=== PATIENT | female | born 1935 | race Caucasian/White ===

== ENCOUNTER 2020-07-30 16:06 | Inpatient (IN) | payer MEDICARE, OTHER ==
[2020-07-30 18:30] LABS: #Lymphocytes 0.7 thou/uL (1.20-3.40); #Neutrophils 10.7 thou/uL (1.40-6.50); %Eosinophils 0.2 % (0.0-10.0); %Lymphocytes 5.3 % (21.0-51.0); %Monocytes 8.1 % (0.0-10.0); %Neutrophils 86.4 % (42.0-75.0); Hemoglobin 10.9 g/dL (12.0-16.0); Mean Corpuscular HGB CONC 31.4 g/dL (32.0-36.0); Mean Corpuscular Hemoglobin 29.3 pg (27.0-31.0); Mean Corpuscular Volume 93.5 fL (78.0-98.0); Mean Platelet Volume 9.8 fL (7.4-10.4); Platelet Count 228 thou/uL (130-400); RBC Distribution Width 15.2 % (11.5-14.5); Red Blood Cell (RBC) Count 3.71 mill/uL (4.20-5.40); White Blood Cell (WBC) Count 12.4 thou/uL (4.8-10.8)
[2020-07-30 18:51] LABS: ALT (SGPT) 12 U/L (8-55); AST (SGOT) 17 U/L (5-34); Albumin 3.4 g/dL (3.4-4.8); Alkaline Phosphatase 81 U/L (40-110); Anion Gap 18 mmol/L (10-20); BUN (Urea Nitrogen) 48 mg/dL (9.8-20.1); Bilirubin, Total 0.6 mg/dL (0.2-1.2); Calc. Creatinine Clearance 0 mL/min (70-130); Calcium 8.5 mg/dL (7.8-10.44); Carbon Dioxide 15 mmol/L (23-31); Chloride 115 mmol/L (98-107); Globulin 4.1 g/dL (2.4-3.5); Glucose 123 mg/dL (83-110); Potassium 4.2 mmol/L (3.5-5.1); Protein, Total 7.5 g/dL (6.0-8.3); Sodium 144 mmol/L (136-145)
[2020-07-30] MEDS ORDERED: Acetaminophen 500 MG TAB ONE (19:25)
--- NOTE | 2020-07-30 19:41 | RAD ---
FRONTAL RADIOGRAPH CHEST: Date: 07-30-2020 Comparison: None History: Bilateral lower extremity swelling, unable to ambulate. FINDINGS: No pneumothorax or pleural fluid. No focal consolidation or alveolar edema. The descending thoracic a maria luisa is tortuous. There is rounded density at the diaphragmatic hiatus suggesting hiatal hernia. Mild pulmonary vascular congestion. IMPRESSION: Rounded density at the diaphragmatic hiatus suggests hiatal hernia. No focal consolidation or alveola r edema. POS: RUMA
[2020-07-30] MEDS ORDERED: Furosemide 40 MG/4 ML VIAL ONE (20:08)
[2020-07-30 22:28] LABS: Troponin I 0.034 ng/mL (< 0.028)
--- NOTE | 2020-07-30 22:46 | PDOC.FPRHP ---
- History of Present Illness Chief Complaint: B/L LE Edema History of Present Illness: Patient brought in by her daughter for evaluation of 2 months worth of gradual worsening lower extremity swelling and now the patient is unable to ambulate. Per daughter patient is normally able to ambulate without assistance, but today her legs are extremely swollen and she states that it is too painful to walk. No chest pain, no shortness of breath, no cough, no recent fever or illness. She did not fall because any trauma to her lower extremities. Her symptoms are continuous in nature and not affected by movements or position. Patient is a poor historian, kept falling asleep during questioning. Unable to determine baseline at our examination due to no family member there and unable to reach [facility]. ED Course: Furosemide $0mg IVP, 1000mg acetaminophen - Allergies/Adverse Reactions Allergies Allergy/AdvReac Type Severity Reaction Status Date / Time Penicillins Allergy Verified 07/31/20 08:20 - Home Medications Medication Instructions Recorded Confirmed Type Amlodipine Besylate [amLODIPine 10 mg PO DAILY 07/31/20 07/31/20 History Besylate] Clopidogrel Bisulfate [Clopidogrel] 75 mg PO DAILY 07/31/20 07/31/20 History Levothyroxine Sodium 112 mcg PO 0600 07/31/20 07/31/20 History [Levothyroxine] Rosuvastatin [Crestor] 20 mg PO DAILY 07/31/20 07/31/20 History - History PMHx: Hypothyroidism, HLD, HTN, CKD Stage 5, PVD - limited due to poor historian PSHx: cholecystectomy, tonsillectomy FHx: as above Social: as above - Review of Systems ROS unobtainable: other (patient AxO x3, however constantly falling asleep during questioning) General: denies: fever/chills, weight/appetite/sleep changes Eyes: denies: eye pain, vision changes ENT: denies: nasal congestion, rhinorrhea Respiratory: denies: cough, congestion Cardiovascular: reports: edema. denies: chest pain, palpitation Gastrointestinal: denies: nausea, vomiting, diarrhea, constipation, abdominal pain Genitourinary: denies: incontinence, dysuria Skin: denies: rashes, lesions Musculoskeletal: reports: pain, tenderness. denies: stiffness Neurological: denies: numbness, syncope - Vital signs BP: 139/64, Pulse: 70, Resp: 18, Pain: 0, O2 sat: 96 on (Room Air), Wt 61.23kg - Physical Exam Constitutional: NAD, awake, alert and oriented HEENT: normocephalic and atraumatic, MMM Neck: supple, FROM Heart: RRR, normal S1/S2, no murmurs/rubs/gallops, other (2+ pitting edema bilaterally) Lungs: CTAB, no respiratory distress Abdomen: soft, non-tender Musculoskeletal: normal structure Neurological: no focal deficit, CN II-XII intact -Skin: 2cm x 1 cm pressure ulcer on the right ankle with surrounding erythema Heme/Lymphatic: no unusual bruising or bleeding, no purpura, no petechia -Psychiatric: AxO x 3, however falling asleep frequently and difficulty answering questions FMR H&P: Results - Labs Result Diagrams: 07/31/20 04:30 07/31/20 04:30 Lab results: WBC 12.4 thou/uL (4.8-10.8) H 07/30/20 18:13 Hgb 10.9 g/dL (12.0-16.0) L 07/30/20 18:13 Hct 34.7 % (36.0-47.0) L 07/30/20 18:13 MCV 93.5 fL (78.0-98.0) 07/30/20 18:13 Plt Count 228 thou/uL (130-400) 07/30/20 18:13 Neutrophils % 86.4 % (42.0-75.0) H 07/30/20 18:13 Sodium 144 mmol/L (136-145) 07/30/20 18:13 Potassium 4.2 mmol/L (3.5-5.1) 07/30/20 18:13 Chloride 115 mmol/L (98-107) H 07/30/20 18:13 Carbon Dioxide 15 mmol/L (23-31) L 07/30/20 18:13 BUN 48 mg/dL (9.8-20.1) H 07/30/20 18:13 Creatinine 2.96 mg/dL (0.6-1.1) H 07/30/20 18:13 Glucose 123 mg/dL (83-110) H 07/30/20 18:13 Calcium 8.5 mg/dL (7.8-10.44) 07/30/20 18:13 Total Bilirubin 0.6 mg/dL (0.2-1.2) 07/30/20 18:13 AST 17 U/L (5-34) 07/30/20 18:13 ALT 12 U/L (8-55) 07/30/20 18:13 Alkaline Phosphatase 81 U/L (40-110) 07/30/20 18:13 CK-MB (CK-2) 2.0 ng/mL (0-6.6) 07/30/20 18:13 B-Natriuretic Peptide 106.1 pg/mL (0-100) H 07/30/20 18:13 Serum Total Protein 7.5 g/dL (6.0-8.3) 07/30/20 18:13 Albumin 3.4 g/dL (3.4-4.8) 07/30/20 18:13 FMR H&P: A/P - Plan Sepsis 2/2 Cellulitis vs UTI WBC 12.4, tachy at 96 on admission UA: +nitrites, bacteria - give dose Rocephin - BCx ordered, UCx ordered - Procal ordered - mIVFs Acute Encephalopathy, suspected 2/2 cellulitis vs UTI Unable to determine baseline 2/2 unable to reach daughter - Procal, BCx as above - ammonia ordered - stat ABG - TSH - UA ordered - Continue to attempt to reach daughter - NPO, pending bedside swallow Elevated Troponin, r/o ACS, suspected 2/2 demand ischemia 0.39 --> 0.34, likely 2/2 CKD EKG with NSR & RBBB, LAFB, no ST/T wave changes. - will get Echo - trend Troponins PVD s/p bilateral angioplasty - aware Bilateral LE Edema - suspected 2/2 PVD, chronic edema CKD Stage [address] Avendano Cr. 2.86 appears baseline from last visit - renally dose medications - continue to monitor Hypothyroidism - resume home meds - check TSH HTN - resume home meds HLD - resume home meds Anemia - No clinical signs of bleeding, at baseline. Likely anemia of CKD. Monitor. DVT ppx: ppx heparin Fluids: LR @130cc/hr Abx: Rocephin I have discussed this case with Dr. Alexander who is in agreement with the plan. FMR H&P: Upper Level - Plan Date/Time: 07/30/20 0379 I, [Evelyn Avendano], have evaluated this patient and agree with findings/plan as outlined by logistics intern resident. Pertinent changes/additions are listed here. Ms. Pham is an 85 yo F with CKD4, hypothyroidism brought in by daughter for painful bilateral lower extremity swelling per ERMD and being admitted for elevated troponin, ACS r/o. Patient is sleepy in room but does deny chest pain. She has had BLE edema that has been present for quite some time per daughter and per chart review she has a history of PVD with hx of bilateral angioplasty. Pt reports the swelling is bothersome this evening. Denies fevers, chills but again she is in and out of consciousness so it is difficult to obtain. She has CKD4, follows along with Dr. Regan Avendano. June labs showed Cr 2.96 and gfr 15 (around what it is in the ER this evening). She needs to be verbally prompted to respond but is A&O x3. On exam she has 2+ edema up to mid elder. Her right foot is worse than her left with developing erythema around a pressure ulcer starting to form. She was given 40IV Lasix in the ER. Pertinent labs: elevated WBC of ~12, BNP 106. No known cardiac history. BUN 48, Cr 2.96, BNP 106 #Acute encephalopathy: Unsure of baseline, attempted to contact daughter. Could be 2/2 to sepsis. Check ABG, TSH, ammonia. Speech swallow, NPO in meantime. #Sepsis 2/2 RLE cellulitis vs. UTI: Elevated WBC, tachycardic in ER -UA: Nitrites, bacteria -Will get blood cultures, give dose of rocephin, pending UCx & BCx -Since mildly fluid overloaded with CKD4, will start on maintenance+ fluids for 1L total -Repeat labs in AM #Elevated troponin, ACS r/o: 0.039, EKG with NSR & RBBB, LAFB, no ST/T wave changes. Will trend, admit to tele & monitor. Consider stress response from acute infection with poor clearance in light of ESRD. Patient unable to give cardiac history, will need to call daughter in AM again to get more information. HEART 5 #Non gap met acidosis: Check lactic acid #Elevated BUN: Fluids, recheck in AM #Anemia: No clinical signs of bleeding, at baseline. Likely anemia of CKD. Monitor. #Hx of hypothyroidism: Will check TSH DVT ppx: ppx heparin Fluids: LR @130cc/hr Abx: Rocephin See logistics intern note for rest of chronic problems Addendum - Attending - Attending Attestation Date/Time: 07/31/202044 I personally evaluated the patient and discussed the management with Dr. Mendez and Juan Alberto last night in the ER. I agree with the History, Examination, Assessment and Plan documented above with any addition or exceptions noted below.
[2020-07-31 00:19] LABS: CO2 Tension 29.7 mmHg (35.0-45.0); O2 Tension (PaO2), arterial 69.1 mmHg (> 60.0); pH, Arterial 7.37 (7.35-7.45)
[2020-07-31 00:20] LABS: Actual Bicarbonate (HCO3a) 16.8 mEq/L (22-28); Base Excess (BEa) -7.4 mEq/L (-2.0 to +3.0); Hemoglobin (Hb) 10.5 g/dL (12.0-16.0)
[2020-07-31 00:21] LABS: Analyzer IN Cardio ER; Carboxyhemoglobin (COHb) 0.1 gm% (0.0-3.0); Potassium - ABG Lab 3.94 mmol/L (3.70-5.30); Puncture Site RRA
[2020-07-31 00:22] LABS: ALV-art Gradient 43.505 mmHg (0-20)
[2020-07-31 01:15] LABS: Troponin I 0.042 ng/mL (< 0.028)
[2020-07-31] MEDS ORDERED: Lactated Ringer's 1,000 ML IV SCH (01:45)
[2020-07-31 01:47] LABS: Bacteria/HPF 4+ HPF (None Seen); Bilirubin Negative (Negative); Blood, Urine 1+ (Negative); Clarity Clear (Clear); Glucose, Urine (Dipstick) Normal (Negative); Ketone, Urine Negative (Negative); Leukocyte 75 Leu/uL (Negative); Nitrite 1+ (Negative); Protein, Urine (Dipstick) Negative (Neg-Trace); RBC/HPF 0-3 HPF (0-3); Specific Gravity, Urine 1.007 (1.002-1.036); Urobilinogen Normal mg/dL (Less than 2)
[2020-07-31] MEDS ORDERED: cefTRIAXone\\ROCEPHIN 2 GM VIAL ONE (03:11)
[2020-07-31] MEDS: cefTRIAXone\\ROCEPHIN 2 GM in Sodium Chloride 0.9% 100 ML IVPB SCH (03:17)
[2020-07-31 04:24] LABS: SARS-CoV-2 MS2 Positive; SARS-CoV-2 N Gene Negative; SARS-CoV-2 S Gene Negative; SARS-CoV-2 by NAA Not Detected (NotDetected); SARS-CoV-2 orf1ab Negative
[2020-07-31 04:33] VITALS: BMI 27.3
[2020-07-31 04:55] LABS: #Eosinphils 0.1 thou/uL (0.0-0.7); #Monocytes 0.8 thou/uL (0.11-0.59); #Neutrophils 6.8 thou/uL (1.40-6.50); %Basophils 0.1 % (0.0-1.0); %Eosinophils 0.6 % (0.0-10.0); %Lymphocytes 11.6 % (21.0-51.0); %Monocytes 8.7 % (0.0-10.0); %Neutrophils 78.9 % (42.0-75.0); Hemoglobin 10.2 g/dL (12.0-16.0); Mean Corpuscular HGB CONC 31.4 g/dL (32.0-36.0); Mean Corpuscular Hemoglobin 29.8 pg (27.0-31.0); Mean Platelet Volume 9.7 fL (7.4-10.4); Platelet Count 208 thou/uL (130-400); RBC Distribution Width 15.1 % (11.5-14.5); Red Blood Cell (RBC) Count 3.41 mill/uL (4.20-5.40); White Blood Cell (WBC) Count 8.6 thou/uL (4.8-10.8)
[2020-07-31 05:12] LABS: Lactic Acid 0.9 mmol/L (0.5-2.2)
[2020-07-31 05:16] LABS: Anion Gap 16 mmol/L (10-20); BUN (Urea Nitrogen) 45 mg/dL (9.8-20.1); Calc. Creatinine Clearance 17 mL/min (70-130); Calcium 8.3 mg/dL (7.8-10.44); Carbon Dioxide 17 mmol/L (23-31); Chloride 114 mmol/L (98-107); Glucose 97 mg/dL (83-110); Potassium 3.8 mmol/L (3.5-5.1); Sodium 143 mmol/L (136-145)
[2020-07-31 05:19] LABS: Troponin I 0.026 ng/mL (< 0.028)
[2020-07-31 05:35] LABS: Free T4 (Free Thyroxine) 0.6 ng/dL (0.70-1.48)
--- NOTE | 2020-07-31 06:08 | PDOC.FM ---
- Subjective Subjective: Patient doing well this morning. A&Ox4. Reports her legs feel better than when she came in. - Objective Vital Signs & Weight: Vital Signs (12 hours) Temp Pulse Resp BP Pulse Ox 07/31/20 04:32 98.4 F 70 16 137/71 93 L Weight Weight 76.8 kg Result Diagrams: 07/31/20 04:30 07/31/20 04:30 Phys Exam - Physical Examination Constitutional: NAD HEENT: moist MMs, sclera anicteric Neck: supple, full ROM Respiratory: no wheezing, clear to auscultation bilateral Cardiovascular: RRR, no significant murmur Gastrointestinal: soft, non-tender 1+BLE pitting edema mid-calf; missing R 5th toe, missing L 4th toe Neurological: moves all 4 limbs Psychiatric: normal affect Deviation from normal: erythema and warmth RLE up slightly past ankle Dx/Plan (1) Cellulitis Code(s): L03.90 - CELLULITIS, UNSPECIFIED Status: Acute (2) Hypothyroidism Code(s): E03.9 - HYPOTHYROIDISM, UNSPECIFIED Status: Acute (3) Acute encephalopathy Code(s): G93.40 - ENCEPHALOPATHY, UNSPECIFIED Status: Acute - Plan Plan: #Sepsis 2/2 Cellulitis of the R ankle WBC 12.4, tachy at 96 on admission - Rocephin started 07/31, will continue - BCx pending - Procal neg #Acute Encephalopathy, 2/2 cellulitis vs UTI; resolved Unable to determine baseline 2/2 unable to reach daughter on admission, A&O x 4 now - Procal, BCx as above - ammonia 21 - stat ABG demonstrated mild CO2 retention - TSH elevated, T4 and T3 slightly low; will discuss home meds with daughter this am -per chart review it appears that during a clinic visit in January 2020, the patient's daughter stated she often finds her medications in her room without being taken and has had TSH as high as 88 in the past; will restart last levothyroxine dose of 112mcg - UA dirty, +nitrites, +leuks; on rocephin for cellulitis; on rocephin for cellulitis and possible UTI -passed dysphagia screen #Elevated Troponin 0.39 --> 0.34, likely 2/2 CKD - echo pending #Non-anion gap metabolic acidosis -bicarb 17 -likely due to sepsis/cellulitis #PVD s/p bilateral angioplasty - aware #Bilateral LE Edema - suspected 2/2 PVD, chronic edema - BMP 106 - echo pending #CKD Stage [address] Avendano Cr. 2.86 appears baseline from last visit - renally dose medications - continue to monitor #Hypothyroidism -TSH elevated at 18.0, free T4 0.60, free T3 1.19 -questionable whether patient has been taking her home meds - will resume home meds at this time and discuss with daughter this am #HTN - resume home meds #HLD - resume home meds Diet: HH DVT ppx: Heparin TID Dispo: admitted for IV abx for cellulitis and monitoring of mentation Code:Full PCP: Zaina Addendum - Attending - Attending Attestation Date/Time: 07/31/20 9041 I personally evaluated the patient and discussed the management with Dr. Rendon. I agree with the History, Examination, Assessment and Plan documented above with any addition or exceptions noted below. Patient reports feeling improved. Suspect her LE edema is more vascular mediated or related to untreated hypothyroidism. Will adjust meds. Echo pending. CKD stable.
[2020-07-31] MEDS: Levothyroxine Sodium 112 MCG TAB PO SCH (07:48)
[2020-07-31] MEDS ORDERED: Non-Formulary Item 1 EACH (Levothyroxine Sodium [Levothyroxine] 112 MCG Capsule) PO SCH (09:00)
[2020-07-31] MEDS: Amlodipine 10 MG TAB PO SCH (09:07)
[2020-07-31] MEDS: Clopidogrel Bisulfate 75 MG TAB PO SCH (09:07)
[2020-07-31] MEDS: Heparin 5,000 UNITS/ML VIAL SC SCH ×3 (09:08→20:19)
[2020-07-31] MEDS ORDERED: Furosemide 20 MG/2 ML VIAL SLOW IVP SCH (09:45)
[2020-07-31] MEDS ORDERED: Rosuvastatin 20 MG TAB PO SCH (21:00)
[2020-08-01] MEDS: cefTRIAXone\\ROCEPHIN 2 GM in Sodium Chloride 0.9% 100 ML IVPB SCH (02:31)
[2020-08-01] MEDS: Levothyroxine Sodium 112 MCG TAB PO SCH (05:27)
--- NOTE | 2020-08-01 06:00 | PDOC.FM ---
- Subjective Subjective: Patient doing well this morning. Discussed echo results and plan of care. Discussed rehab vs outpatient PT/OT. 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 - Objective Vital Signs & Weight: Vital Signs (12 hours) Temp Pulse Resp BP Pulse Ox 08/01/20 05:25 93 L 08/01/20 03:15 80 18 141/65 H 93 L 07/31/20 20:15 98.3 F 78 18 106/51 L 94 L Weight Weight 76.8 kg I&O: 07/30/20 07/31/20 08/01/20 06:59 06:59 06:59 Intake Total 420 560 Output Total 0 1900 Balance 420 -1340 Result Diagrams: 07/31/20 04:30 07/31/20 04:30 Phys Exam - Physical Examination Constitutional: NAD HEENT: moist MMs, sclera anicteric Neck: supple, full ROM Respiratory: no wheezing, clear to auscultation bilateral Cardiovascular: RRR, no significant murmur Gastrointestinal: soft, non-tender 1+ pitting edema RLE, no edema LLE Neurological: non-focal, moves all 4 limbs Psychiatric: normal affect Deviation from normal: mild erythema RLE Dx/Plan (1) Cellulitis Code(s): L03.90 - CELLULITIS, UNSPECIFIED Status: Acute (2) Hypothyroidism Code(s): E03.9 - HYPOTHYROIDISM, UNSPECIFIED Status: Acute (3) Acute encephalopathy Code(s): G93.40 - ENCEPHALOPATHY, UNSPECIFIED Status: Acute - Plan Plan: #Erythema of R ankle -Appears more vascular in nature than cellulitis -WBC 12.4 on admission likely related to UTI - Rocephin started 07/31, will continue - BCx pending - Procal neg #Acute Encephalopathy, 2/2 UTI; resolved Unable to determine baseline 2/2 unable to reach daughter on admission, A&O x 4 now - Procal, BCx as above - ammonia 21 - stat ABG demonstrated mild CO2 retention - TSH elevated, T4 and T3 slightly low; will discuss home meds with daughter this am -per chart review it appears that during a clinic visit in January 2020, the patient's daughter stated she often finds her medications in her room without being taken and has had TSH as high as 88 in the past; will restart last levothyroxine dose of 112mcg - UA dirty, +nitrites, +leuks; on rocephin for cellulitis; on rocephin for possible UTI; urine cx pending -passed dysphagia screen #Deconditioning -Both PT and OT recommend rehab -Post acute screen pending; patient will likely prefer outpatient rehab #Elevated Troponin 0.39 --> 0.34, likely 2/2 CKD - echo: EF 55-60%, E/A flow reversal suggestive of diastolic dysfunction, sclerotic aortic valve, moderate mitral regurgitation, mild tricuspid regurgitation -discussed with patient the importance of blood pressure control #Non-anion gap metabolic acidosis -bicarb 17 -likely due to sepsis/cellulitis #PVD s/p bilateral angioplasty - aware #Bilateral LE Edema - suspected 2/2 PVD, chronic edema - BMP 106 - echo demonstrates diastolic dysfunction #CKD Stage [address] Avendano Cr. 2.86 appears baseline from last visit - renally dose medications - continue to monitor #Hypothyroidism -TSH elevated at 18.0, free T4 0.60, free T3 1.19 -questionable whether patient has been taking her home meds - will resume home meds at this time and discuss with daughter this am #HTN - resume home meds #HLD - resume home meds Diet: HH DVT ppx: Heparin TID Dispo: admitted for IV abx, post acute screen for PT/OT needs Code:Full PCP: Zaina Addendum - Attending - Attending Attestation Date/Time: 08/01/20 0704 I personally evaluated the patient and discussed the management with Dr. Rendon. I agree with the History, Examination, Assessment and Plan documented above with any addition or exceptions noted below.
[2020-08-01] MEDS: Clopidogrel Bisulfate 75 MG TAB PO SCH (09:31)
[2020-08-01] MEDS: Amlodipine 10 MG TAB PO SCH (09:31)
[2020-08-01] MEDS: Heparin 5,000 UNITS/ML VIAL SC SCH ×3 (09:31→22:09)
[2020-08-01] MEDS: Furosemide 20 MG TAB PO SCH (10:15)
[2020-08-01] MEDS ORDERED: FLU VACC QS2020-21(65YR UP)/PF 240 MCG/0.7 ML SYRINGE IM ONE (12:30)
[2020-08-01 12:51] LABS: #Eosinphils 0.1 thou/uL (0.0-0.7); #Lymphocytes 1.1 thou/uL (1.20-3.40); #Monocytes 0.6 thou/uL (0.11-0.59); #Neutrophils 5.2 thou/uL (1.40-6.50); %Basophils 0.2 % (0.0-1.0); %Eosinophils 1.5 % (0.0-10.0); %Lymphocytes 15.2 % (21.0-51.0); %Monocytes 7.9 % (0.0-10.0); %Neutrophils 75.2 % (42.0-75.0); Hemoglobin 10.4 g/dL (12.0-16.0); Mean Corpuscular HGB CONC 31.3 g/dL (32.0-36.0); Mean Corpuscular Hemoglobin 29.2 pg (27.0-31.0); Mean Corpuscular Volume 93.5 fL (78.0-98.0); Platelet Count 234 thou/uL (130-400); Red Blood Cell (RBC) Count 3.57 mill/uL (4.20-5.40)
[2020-08-01 13:12] LABS: Anion Gap 17 mmol/L (10-20); BUN (Urea Nitrogen) 52 mg/dL (9.8-20.1); Calc. Creatinine Clearance 16 mL/min (70-130); Calcium 8.2 mg/dL (7.8-10.44); Carbon Dioxide 21 mmol/L (23-31); Chloride 108 mmol/L (98-107); Glucose 109 mg/dL (83-110); Potassium 3.7 mmol/L (3.5-5.1); Sodium 142 mmol/L (136-145)
[2020-08-01] MEDS: Rosuvastatin 10 MG TAB PO SCH (22:09)
[2020-08-02] MEDS: cefTRIAXone\\ROCEPHIN 2 GM in Sodium Chloride 0.9% 100 ML IVPB SCH (02:24)
[2020-08-02] MEDS: Levothyroxine Sodium 112 MCG TAB PO SCH (05:21)
--- NOTE | 2020-08-02 05:47 | PDOC.FM ---
- Subjective Subjective: Patient doing well this morning. Happy that her lower extremity swelling has improved. Discussed plans to talk with her daughter about rehab vs home PT. Patient agreeable. - Objective Vital Signs & Weight: Vital Signs (12 hours) Temp Pulse Resp BP Pulse Ox 08/02/20 05:08 94 L 08/02/20 04:00 97.8 F 71 18 136/65 94 L 08/01/20 20:19 98.4 F 82 18 116/60 95 Weight Weight 72.6 kg I&O: 07/31/20 08/01/20 08/02/20 06:59 06:59 06:59 Intake Total 420 1160 900 Output Total 0 2650 600 Balance 420 -1490 300 Result Diagrams: 08/01/20 12:20 08/02/20 07:18 Phys Exam - Physical Examination Constitutional: NAD HEENT: moist MMs, sclera anicteric Neck: supple, full ROM Respiratory: no wheezing, clear to auscultation bilateral Cardiovascular: RRR, no significant murmur Gastrointestinal: soft, non-tender Musculoskeletal: no edema Neurological: non-focal, moves all 4 limbs Deviation from normal: A&Ox3, believes year is 19-something but knows Biden will be president Deviation from normal: mild erythema RLE, likely venous dermatitis Dx/Plan (1) Cellulitis Code(s): L03.90 - CELLULITIS, UNSPECIFIED Status: Acute (2) Hypothyroidism Code(s): E03.9 - HYPOTHYROIDISM, UNSPECIFIED Status: Acute (3) Acute encephalopathy Code(s): G93.40 - ENCEPHALOPATHY, UNSPECIFIED Status: Acute - Plan Plan: #Erythema of R ankle -Appears more vascular in nature than cellulitis -WBC 12.4 on admission likely related to UTI - Rocephin started 07/31, s/p 3 doses, will continue - BCx NGTD - Procal neg #Acute Encephalopathy, 2/2 UTI; resolved Unable to determine baseline 2/2 unable to reach daughter on admission, A&O x 3- 4 now - Procal, BCx as above - ammonia 21 - stat ABG demonstrated mild CO2 retention - TSH elevated, T4 and T3 slightly low; will discuss home meds with daughter -per chart review it appears that during a clinic visit in January 2020, the patient's daughter stated she often finds her medications in her room without being taken and has had TSH as high as 88 in the past; will restart last levothyroxine dose of 112mcg - UA dirty, +nitrites, +leuks; on rocephin for cellulitis; on rocephin for UTI -passed dysphagia screen #UTI -urine dirty on admission -urine cx resulted with e. coli, [place]-sensitive -s/p 3 doses of rocephin #Deconditioning -Both PT and OT recommend rehab -Post acute screen demonstrated that patient will likely agree to go wherever her daughter agrees to -contacted daughter yesterday with full voicemail and no response, will attempt contact today #Elevated Troponin 0.39 --> 0.34, likely 2/2 CKD #Non-anion gap metabolic acidosis -bicarb 17 -likely due to UTI infection #Diastolic Heart Failure -echo: EF 55-60%, E/A flow reversal suggestive of diastolic dysfunction, sclerotic aortic valve, moderate mitral regurgitation, mild tricuspid regurgitation -discussed with patient the importance of blood pressure control -started on 20mg lasix po qd #PVD s/p bilateral angioplasty - aware #Bilateral LE Edema - suspected 2/2 PVD, chronic edema - BMP 106 - echo demonstrates diastolic dysfunction #CKD Stage [address] Avendano Cr. 2.86 appears baseline from last visit - renally dose medications - continue to monitor #Hypothyroidism -TSH elevated at 18.0, free T4 0.60, free T3 1.19 -questionable whether patient has been taking her home meds - will resume home meds at this time and discuss with daughter this am #HTN - resume home meds #HLD - resume home meds Diet: HH DVT ppx: Heparin TID Dispo: admitted for IV abx; placement pending Code:Full PCP: Zaina Addendum - Attending - Attending Attestation Date/Time: 08/02/20 7719 I personally evaluated the patient and discussed the management with Dr. Rendon. I agree with the History, Examination, Assessment and Plan documented above with any addition or exceptions noted below. Patient stable. Edema improved with addition of low dose Lasix. Renal function needs to be closely monitored. She does have the more characteristic appearance of cellulitis in the RLE at this time and will add Vanc with plan to transition to Bactrim upon discharge. Placement being arranged.
[2020-08-02 07:46] LABS: Anion Gap 18 mmol/L (10-20); BUN (Urea Nitrogen) 47 mg/dL (9.8-20.1); Calc. Creatinine Clearance 16 mL/min (70-130); Calcium 8.2 mg/dL (7.8-10.44); Carbon Dioxide 17 mmol/L (23-31); Chloride 111 mmol/L (98-107); Glucose 93 mg/dL (83-110); Potassium 3.7 mmol/L (3.5-5.1); Sodium 142 mmol/L (136-145)
[2020-08-02] MEDS: Amlodipine 10 MG TAB PO SCH (08:51)
[2020-08-02] MEDS: Heparin 5,000 UNITS/ML VIAL SC SCH ×3 (08:51→20:42)
[2020-08-02] MEDS: Clopidogrel Bisulfate 75 MG TAB PO SCH (08:51)
[2020-08-02] MEDS: Furosemide 20 MG TAB PO SCH (08:51)
[2020-08-02] MEDS ORDERED: Vancomycin 1 GM in Premix Bag 1 BAG IVPB SCH (12:00)
[2020-08-02] MEDS: Rosuvastatin 10 MG TAB PO SCH (20:41)
[2020-08-03] MEDS: cefTRIAXone\\ROCEPHIN 2 GM in Sodium Chloride 0.9% 100 ML IVPB SCH (02:23)
[2020-08-03 04:51] LABS: #Eosinphils 0.1 thou/uL (0.0-0.7); #Monocytes 0.6 thou/uL (0.11-0.59); #Neutrophils 4.7 thou/uL (1.40-6.50); %Basophils 0.4 % (0.0-1.0); %Eosinophils 1.9 % (0.0-10.0); %Lymphocytes 15.6 % (21.0-51.0); %Monocytes 8.8 % (0.0-10.0); %Neutrophils 73.3 % (42.0-75.0); Hemoglobin 10.2 g/dL (12.0-16.0); Mean Corpuscular HGB CONC 31.6 g/dL (32.0-36.0); Mean Corpuscular Hemoglobin 29.5 pg (27.0-31.0); Mean Corpuscular Volume 93.2 fL (78.0-98.0); Mean Platelet Volume 9.8 fL (7.4-10.4); Platelet Count 229 thou/uL (130-400); RBC Distribution Width 14.9 % (11.5-14.5); Red Blood Cell (RBC) Count 3.47 mill/uL (4.20-5.40); White Blood Cell (WBC) Count 6.4 thou/uL (4.8-10.8)
[2020-08-03] MEDS: Levothyroxine Sodium 112 MCG TAB PO SCH (04:59)
[2020-08-03 05:16] LABS: Anion Gap 17 mmol/L (10-20); BUN (Urea Nitrogen) 45 mg/dL (9.8-20.1); Calc. Creatinine Clearance 16 mL/min (70-130); Calcium 8.2 mg/dL (7.8-10.44); Carbon Dioxide 19 mmol/L (23-31); Chloride 111 mmol/L (98-107); Glucose 100 mg/dL (83-110); Potassium 3.6 mmol/L (3.5-5.1); Sodium 143 mmol/L (136-145)
--- NOTE | 2020-08-03 05:31 | PDOC.FM ---
- Subjective Subjective: Doing well this morning, reports that her rash on her RLE has improved and her swelling has greatly improved. Discussed going to [facility] when accepted for rehab, patient agreeable. - Objective Vital Signs & Weight: Vital Signs (12 hours) Temp Pulse Resp BP Pulse Ox 08/03/20 04:50 97 08/03/20 03:21 98.6 F 75 18 130/69 97 08/02/20 19:15 97.8 F 87 18 123/69 95 Weight Weight 72.6 kg I&O: 08/01/20 08/02/20 08/03/20 06:59 06:59 06:59 Intake Total 1160 900 480 Output Total 2650 600 Balance -1490 300 480 Result Diagrams: 08/03/20 04:13 08/03/20 04:13 Phys Exam - Physical Examination Constitutional: NAD HEENT: moist MMs, sclera anicteric Neck: supple, full ROM Respiratory: no wheezing, clear to auscultation bilateral Cardiovascular: RRR, no significant murmur Gastrointestinal: soft, non-tender, no distention trace RLE edema Neurological: non-focal, moves all 4 limbs Psychiatric: normal affect, A&O x 3 Deviation from normal: erythema and warmth surrounding lesion on R ankle Dx/Plan (1) Cellulitis Code(s): L03.90 - CELLULITIS, UNSPECIFIED Status: Acute (2) Hypothyroidism Code(s): E03.9 - HYPOTHYROIDISM, UNSPECIFIED Status: Acute (3) Acute encephalopathy Code(s): G93.40 - ENCEPHALOPATHY, UNSPECIFIED Status: Acute - Plan Plan: #Cellulitis of R ankle -Appeared more vascular in nature than cellulitis, however 08/02 RLE appeared to have erythematous cellulitis-like rash when patient was hanging her feet off of the bed - Rocephin started 07/31, s/p 4 doses, will stop today; added vanc 08/02 - BCx NGTD - Procal neg #Acute Encephalopathy, 2/2 UTI; resolved Unable to determine baseline 2/2 unable to reach daughter on admission, A&O x 3- 4 now - Procal, BCx as above - ammonia 21 - stat ABG demonstrated mild CO2 retention - TSH elevated, T4 and T3 slightly low; will discuss home meds with daughter -per chart review it appears that during a clinic visit in January 2020, the patient's daughter stated she often finds her medications in her room without being taken and has had TSH as high as 88 in the past; will restart last levothyroxine dose of 112mcg - UA dirty, +nitrites, +leuks; on rocephin for cellulitis; s/p 4 doses rocephin for UTI -passed dysphagia screen #UTI -urine dirty on admission -urine cx resulted with e. coli, [place]-sensitive -s/p 4 doses of rocephin #Deconditioning -Both PT and OT recommend rehab -CM was able to contact daughter and sent referral to [facility] for rehab #Elevated Troponin 0.39 --> 0.34, likely 2/2 CKD #Non-anion gap metabolic acidosis, resolved -bicarb 19 -likely due to UTI infection #Diastolic Heart Failure -echo: EF 55-60%, E/A flow reversal suggestive of diastolic dysfunction, sclerotic aortic valve, moderate mitral regurgitation, mild tricuspid regurgitation -discussed with patient the importance of blood pressure control -started on 20mg lasix po qd #PVD s/p bilateral angioplasty - aware #Bilateral LE Edema - suspected 2/2 PVD, chronic edema - BMP 106 - echo demonstrates diastolic dysfunction -improved with daily lasix #CKD Stage [address] Avendano Cr. 2.86 appears baseline from last visit - renally dose medications - continue to monitor now that patient on lasix #Hypothyroidism -TSH elevated at 18.0, free T4 0.60, free T3 1.19 -questionable whether patient has been taking her home meds - will resume home meds at this time and discuss with daughter this am #HTN - resume home meds #HLD - resume home meds Diet: HH DVT ppx: Heparin TID Dispo: admitted for IV abx; placement at [facility] for rehab pending Code:Full PCP: Zaina Martínez - Attending - Attending Attestation Date/Time: 08/03/20 7280 I personally evaluated the patient and discussed the management with Dr. Rendon. I agree with the History, Examination, Assessment and Plan documented above with any addition or exceptions noted below. Patient cellulitis improved. Continue low dose Lasix, monitor renal function, awaiting placement.
[2020-08-03] MEDS: Furosemide 20 MG TAB PO SCH (09:28)
[2020-08-03] MEDS: Heparin 5,000 UNITS/ML VIAL SC SCH ×3 (09:28→20:50)
[2020-08-03] MEDS: Clopidogrel Bisulfate 75 MG TAB PO SCH (09:28)
[2020-08-03] MEDS: Amlodipine 10 MG TAB PO SCH (09:28)
[2020-08-03] MEDS ORDERED: Vancomycin 1 GM in Premix Bag 1 BAG IVPB SCH (12:00)
[2020-08-03 15:09] LABS: Vancomycin, Trough 6.7 ug/mL
[2020-08-03] MEDS ORDERED: Vancomycin HCl 1.25 GM in Sodium Chloride 0.9% 250 ML 250 ML IVPB SCH (18:30)
[2020-08-03] MEDS: Rosuvastatin 10 MG TAB PO SCH (20:51)
[2020-08-04 04:49] LABS: #Eosinphils 0.2 thou/uL (0.0-0.7); #Monocytes 0.4 thou/uL (0.11-0.59); %Basophils 0.6 % (0.0-1.0); %Eosinophils 3.5 % (0.0-10.0); %Lymphocytes 17.8 % (21.0-51.0); %Monocytes 7.8 % (0.0-10.0); %Neutrophils 70.3 % (42.0-75.0); Hemoglobin 10.4 g/dL (12.0-16.0); Mean Corpuscular HGB CONC 31.5 g/dL (32.0-36.0); Mean Corpuscular Hemoglobin 29.5 pg (27.0-31.0); Mean Corpuscular Volume 93.6 fL (78.0-98.0); Platelet Count 244 thou/uL (130-400); RBC Distribution Width 14.7 % (11.5-14.5); Red Blood Cell (RBC) Count 3.51 mill/uL (4.20-5.40); White Blood Cell (WBC) Count 5.7 thou/uL (4.8-10.8)
[2020-08-04 04:56] LABS: Anion Gap 17 mmol/L (10-20); BUN (Urea Nitrogen) 37 mg/dL (9.8-20.1); Calc. Creatinine Clearance 17 mL/min (70-130); Calcium 8.3 mg/dL (7.8-10.44); Carbon Dioxide 20 mmol/L (23-31); Chloride 109 mmol/L (98-107); Glucose 92 mg/dL (83-110); Potassium 3.6 mmol/L (3.5-5.1); Sodium 142 mmol/L (136-145)
--- NOTE | 2020-08-04 05:31 | PDOC.FM ---
- Subjective Subjective: Patient doing well this morning. Happy her granddaughter came up to spend the evening with her. Lower extremity swelling continues to improve. - Objective Vital Signs & Weight: Vital Signs (12 hours) Temp Pulse Resp BP BP Pulse Ox 08/04/20 04:00 97.8 F 75 18 127/68 98 08/03/20 19:43 97.5 F L 76 18 148/69 H 95 Weight Weight 72.6 kg I&O: 08/02/20 08/03/20 08/04/20 06:59 06:59 06:59 Intake Total 900 680 720 Output Total 600 300 Balance 300 380 720 Result Diagrams: 08/04/20 03:30 08/04/20 03:30 Phys Exam - Physical Examination Constitutional: NAD HEENT: moist MMs, sclera anicteric Neck: supple, full ROM Respiratory: no wheezing, clear to auscultation bilateral Cardiovascular: RRR, no significant murmur Gastrointestinal: soft, no distention Musculoskeletal: no edema, pulses present Neurological: non-focal, moves all 4 limbs Psychiatric: normal affect Deviation from normal: erythema and warmth surrounding lesion on R ankle, improved Dx/Plan (1) Cellulitis Code(s): L03.90 - CELLULITIS, UNSPECIFIED Status: Acute (2) Hypothyroidism Code(s): E03.9 - HYPOTHYROIDISM, UNSPECIFIED Status: Acute (3) Acute encephalopathy Code(s): G93.40 - ENCEPHALOPATHY, UNSPECIFIED Status: Acute - Plan Plan: #Cellulitis of R ankle -Appeared more vascular in nature than cellulitis, however 08/02 RLE appeared to have erythematous cellulitis-like rash when patient was hanging her feet off of the bed - Rocephin 07/31-08/03, s/p 4 doses; added vanc 08/02-08/03, will chance to doxy today - BCx NGTD - Procal neg #Acute Encephalopathy, 2/2 UTI; resolved Unable to determine baseline 2/2 unable to reach daughter on admission, A&O x 3- 4 now - Procal, BCx as above - ammonia 21 - stat ABG demonstrated mild CO2 retention - TSH elevated, T4 and T3 slightly low; will discuss home meds with daughter -per chart review it appears that during a clinic visit in January 2020, the patient's daughter stated she often finds her medications in her room without being taken and has had TSH as high as 88 in the past; will restart last levot hyroxine dose of 112mcg - UA dirty, +nitrites, +leuks; on rocephin for cellulitis; s/p 4 doses rocephin for UTI -passed dysphagia screen #UTI -urine dirty on admission -urine cx resulted with e. coli, [place]-sensitive -s/p 4 doses of rocephin #Deconditioning -Both PT and OT recommend rehab -CM was able to contact daughter and sent referral to [facility] for rehab -pending placement #Elevated Troponin 0.39 --> 0.34, likely 2/2 CKD #Non-anion gap metabolic acidosis, resolved -bicarb 19>20 -likely due to UTI infection #Diastolic Heart Failure -echo: EF 55-60%, E/A flow reversal suggestive of diastolic dysfunction, sclerotic aortic valve, moderate mitral regurgitation, mild tricuspid regurgitation -discussed with patient the importance of blood pressure control -started on 20mg lasix po qd, continue #PVD s/p bilateral angioplasty - aware #Bilateral LE Edema - suspected 2/2 PVD, chronic edema - BMP 106 - echo demonstrates diastolic dysfunction -improved with daily lasix #CKD Stage [address] Avnedano Cr. 2.86 appears baseline from last visit - renally dose medications - continue to monitor now that patient on lasix #Hypothyroidism -TSH elevated at 18.0, free T4 0.60, free T3 1.19 -questionable whether patient has been taking her home meds - will resume home meds at this time #HTN - resume home meds #HLD - resume home meds Diet: HH DVT ppx: Heparin TID Dispo: placement at [facility] for rehab pending Code:Full PCP: Zaina Addendum - Attending - Attending Attestation Date/Time: 08/04/20 6624 I personally evaluated the patient and discussed the management with Dr. Rendon. I agree with the History, Examination, Assessment and Plan documented above with any addition or exceptions noted below. Patient feeling well this morning. Edema and cellulitis in RLE improved this morning. Continue Vanc with plans to transition to PO meds at time of discharge. Continue Lasix, renal function stable. Awaiting placement.
[2020-08-04] MEDS: Levothyroxine Sodium 112 MCG TAB PO SCH (06:03)
[2020-08-04] MEDS: Furosemide 20 MG TAB PO SCH (08:12)
[2020-08-04] MEDS: Doxycycline 100 MG CAP PO SCH ×2 (08:12→20:21)
[2020-08-04] MEDS: Amlodipine 10 MG TAB PO SCH (08:13)
[2020-08-04] MEDS: Heparin 5,000 UNITS/ML VIAL SC SCH ×3 (08:13→20:21)
[2020-08-04] MEDS: Clopidogrel Bisulfate 75 MG TAB PO SCH (08:13)
--- NOTE | 2020-08-04 16:57 | EKG ---
Test Reason : Blood Pressure : / mmHG Vent. Rate : 084 BPM Atrial Rate : 084 BPM P-R Int : 188 ms QRS Dur : 138 ms QT Int : 422 ms P-R-T Axes : 114 -56 088 degrees QTc Int : 498 ms Normal sinus rhythm Right bundle branch block Left anterior fascicular block Bifascicular block Voltage criteria for left ventricular hypertrophy T wave abnormality, consider lateral ischemia Abnormal ECG Confirmed by ANGELINA MATTHEW ([id number]), loan expeditor KAYLA PACHECO ([id number]) on 08/04/2020 4:56:45 PM Referred By: Confirmed By:ANGELINA Moreno
[2020-08-04] MEDS: Rosuvastatin 10 MG TAB PO SCH (20:21)
[2020-08-05 04:29] LABS: Anion Gap 17 mmol/L (10-20); BUN (Urea Nitrogen) 41 mg/dL (9.8-20.1); Calc. Creatinine Clearance 15 mL/min (70-130); Calcium 8.7 mg/dL (7.8-10.44); Carbon Dioxide 20 mmol/L (23-31); Chloride 108 mmol/L (98-107); Glucose 100 mg/dL (83-110); Sodium 141 mmol/L (136-145)
--- NOTE | 2020-08-05 05:36 | PDOC.FM ---
- Subjective Subjective: Patient doing well this morning, reports her ankle feels improved. - Objective Vital Signs & Weight: Vital Signs (12 hours) Temp Pulse Resp BP Pulse Ox 08/05/20 03:20 97.8 F 80 18 134/61 95 08/04/20 19:42 97.6 F 75 18 139/65 96 Weight Weight 73.028 kg I&O: 08/03/20 08/04/20 08/05/20 06:59 06:59 06:59 Intake Total 680 820 970 Output Total 300 500 Balance 380 320 970 Result Diagrams: 08/04/20 03:30 08/05/20 03:15 Phys Exam - Physical Examination Constitutional: NAD HEENT: moist MMs, sclera anicteric Neck: supple, full ROM Respiratory: no wheezing, clear to auscultation bilateral Cardiovascular: RRR, no significant murmur Gastrointestinal: soft, no distention Musculoskeletal: no edema Neurological: non-focal, moves all 4 limbs Psychiatric: normal affect, A&O x 3 Deviation from normal: mild erythema R ankle, improved Dx/Plan (1) Cellulitis Code(s): L03.90 - CELLULITIS, UNSPECIFIED Status: Acute (2) Hypothyroidism Code(s): E03.9 - HYPOTHYROIDISM, UNSPECIFIED Status: Acute (3) Acute encephalopathy Code(s): G93.40 - ENCEPHALOPATHY, UNSPECIFIED Status: Acute - Plan Plan: #Cellulitis of R ankle, improved -Appeared more vascular in nature than cellulitis, however 08/02 RLE appeared to have erythematous cellulitis-like rash when patient was hanging her feet off of the bed - Rocephin 07/31-08/03, s/p 4 doses; added vanc 08/02-08/03, started doxy BID 08/04 - BCx NGTD - Procal neg #Deconditioning -Both PT and OT recommend rehab -CM was able to contact daughter and sent referral to [facility] for rehab -pending placement #Acute Encephalopathy, 2/2 UTI; resolved Unable to determine baseline 2/2 unable to reach daughter on admission, A&O x 3- 4 now - Procal, BCx as above - ammonia 21 - stat ABG demonstrated mild CO2 retention - TSH elevated, T4 and T3 slightly low; will discuss home meds with daughter -per chart review it appears that during a clinic visit in January 2020, the patient's daughter stated she often finds her medications in her room without being taken and has had TSH as high as 88 in the past; will restart last levothyroxine dose of 112mcg - UA dirty, +nitrites, +leuks; on rocephin for cellulitis; s/p 4 doses rocephin for UTI -passed dysphagia screen #UTI, resolved -urine dirty on admission -urine cx resulted with e. coli, [place]-sensitive -s/p 4 doses of rocephin #Elevated Troponin, resolved 0.39 --> 0.34, likely 2/2 CKD #Non-anion gap metabolic acidosis, resolved -bicarb 19>20 -likely due to UTI infection #Diastolic Heart Failure -echo: EF 55-60%, E/A flow reversal suggestive of diastolic dysfunction, sclerotic aortic valve, moderate mitral regurgitation, mild tricuspid regurgitation -discussed with patient the importance of blood pressure control -started on 20mg lasix po qd, will adjust to q2d to help with kidney function #PVD s/p bilateral angioplasty - aware #Bilateral LE Edema - suspected 2/2 PVD, chronic edema - BMP 106 - echo demonstrates diastolic dysfunction -improved with daily lasix #CKD Stage [address] Avendano Cr. 2.86 appears baseline from last visit - renally dose medications - continue to monitor now that patient on lasix #Hypothyroidism -TSH elevated at 18.0, free T4 0.60, free T3 1.19 -questionable whether patient has been taking her home meds - will resume home meds at this time #HTN - resume home meds #HLD - resume home meds Diet: HH DVT ppx: Heparin TID Dispo: placement at [facility] for rehab pending Code:Full PCP: Zaina Addendum - Attending - Attending Attestation Date/Time: 08/05/20 1738 I personally evaluated the patient and discussed the management with Dr. Rendon. I agree with the History, Examination, Assessment and Plan documented above with any addition or exceptions noted below. Patient feeling well. Leg edema continues to be improved and RLE cellulitis improved, now on oral doxy. Continue that. Arranging placement for patient. Renal function varies day to day, consider decreasing Lasix to every other day to help.
[2020-08-05] MEDS: Levothyroxine Sodium 112 MCG TAB PO SCH (06:08)
[2020-08-05] MEDS: Heparin 5,000 UNITS/ML VIAL SC SCH ×2 (08:40→15:28)
[2020-08-05] MEDS: Doxycycline 100 MG CAP PO SCH (08:40)
[2020-08-05] MEDS: Amlodipine 10 MG TAB PO SCH (08:40)
[2020-08-05] MEDS: Clopidogrel Bisulfate 75 MG TAB PO SCH (08:40)
[2020-08-05 15:27] VITALS: BP 135/62; TEMP 98.1
--- NOTE | 2020-08-06 03:49 | DIS ---
DATE OF ADMISSION: 07/30/2020 DATE OF DISCHARGE: 08/05/2020 RESIDENT: Nathalie Rendon MD ADMITTING ATTENDING: Hussain Alexander MD DISCHARGE ATTENDING: Carter Mcclain MD CONSULTS: PT and OT. PROCEDURES: None. PRIMARY DIAGNOSES: Acute encephalopathy due to urinary tract infection and/or cellulitis of the right ankle, deconditioning, urinary tract infection, cellulitis of right ankle, elevated troponin, non-anion gap metabolic acidosis, and diastolic heart failure. SECONDARY DIAGNOSES: Peripheral vascular disease, status post bilateral angioplasty; bilateral lower extremity edema; chronic kidney disease stage 4 to 5; hypothyroidism; hypertension; and hyperlipidemia. DISCHARGE MEDICATIONS: 1. 10 mg amlodipine p.o. daily. 2. 75 mg clopidogrel p.o. daily. 3. 100 mg doxycycline p.o. b.i.d. 4. 20 mg Lasix p.o. q.2 days. 5. 5000 units subcu heparin t.i.d. 6. 112 mcg levothyroxine p.o. daily at 0600 hours. 7. 10 mg rosuvastatin p.o. at bedtime. DISCONTINUED MEDICATIONS: 1. 20 mg rosuvastatin p.o. at bedtime. 2. Vancomycin. 3. Rocephin. HISTORY OF PRESENT ILLNESS/HOSPITAL COURSE: The patient is an 85-year-old female, who was brought in by her daughter for evaluation of two months of worsening lower extremity swelling and difficulty with ambulation due to the swelling. She was also found to be encephalopathic and was unable to answer questions clearly. Her white count on admission was 12.4, and she was found to have a UA that demonstrated nitrites and bacteria as well as right ankle that had erythema surrounding a wound. She was started on Rocephin and provided with fluids. She was also found to have an elevated troponin of 0.39 that trended down to 0.34 and the patient denied chest pain during the hospitalization. Her EKG demonstrated normal sinus rhythm with right bundle branch block with no ST changes. Echo during the hospitalization demonstrated an EF of 55% to 60% with E/A flow reversal suggestive of diastolic dysfunction. Moderate mitral regurgitation. Sclerotic aortic valve. Mild tricuspid regurgitation. She was started on Lasix. The swelling in her lower extremities has improved on the Lasix. However, her creatinine did increase slightly from admission to 3.12 with GFR of 14 and so on day of discharge, her Lasix was changed to q.2 days During the admission, she was found to have a TSH of 18 and it is uncertain whether the patient has been taking her home medications due to the last note in clinic, where she had med refills was in January, suggestive that she has not been taking the levothyroxine. This has been restarted while in the hospital and can be followed up in clinic. Throughout the hospitalization, the patient received four doses of Rocephin and her urine culture demonstrated pansensitive UTI from E coli. Her blood cultures were negative. Her right ankle did continue to increase in erythema and so vancomycin was provided to the patient from 08/02 to 08/03. At that time, doxycycline b.i.d. was started on 08/04 and that has been continued. Her right ankle erythema has continued to improve. She was alert and oriented throughout the hospitalization, was able to work with PT and OT, who recommended that the patient go to rehab. It was decided between the patient and her daughter that it would be the best course for her to go to the [facility] [place] for continued rehab and a doc-to-doc was performed with Dr. Humphrey on the day of discharge, and he agreed to accept the patient. DISPOSITION: Stable. DISCHARGE INSTRUCTIONS: 1. Location: [facility]. 2. Diet: Heart healthy. 3. Activity: As tolerated. 4. Followup: With PCP, Dr. South at [facility] [place] within 1-2 weeks following discharge from the [facility]. Job ID: [id number] [facility]
[2020-08-06] MEDS ORDERED: Furosemide 20 MG TAB PO SCH (08:00)
--- NOTE | 2020-08-07 05:31 | PQF ---
CLINICAL DOCUMENTATION CLARIFICATION FORM: Dear : Carter Souza Date / Time: 08/07/20529 Please exercise your independent, professional judgment in responding to the clarification form. Clinical indicators are provided on the bottom of this form for your review In your clinical opinion based on clinical findings below, can you please specify the acuity of Diastolic Heart Failure if: Please check appropriate box(es): A. ACUITY [ ] Acute [X ] Acute on Chronic [ ] Chronic Physician Signature: Date/Time: For continuity of documentation, please document condition throughout progress notes and discharge summary. Thank You. To be completed by CDI/Coding staff for physician review: Present Clinical Indicators - Signs / Symptoms / Labs Results and Location in Medical Record [X] Ejection Fraction = 55-60 % Echocardiogram 07/30 Dr Trevino [X] BNP 106.1, Troponin I 0.039; 0.034 Laboratory 07/30 [X] BP 148/71, Pulse 95, Resp 20 Vital signs 07/30 [X] Chest X-ray : Mild pulmonary vascular congestion Imaging Dr Nguyen 07/30 [X] Worsening lower extremity swelling and now pt is unable to ambulate H&P p1 07/30 Dr Mendez [X] Elevated troponin, r/o ACS suspected 2/2 demand ischemia H&P p4 07/30 Dr Mendez [X] Diastolic heart failure HPN p3 08/01 Dr Rendon Present Risk Factors Results and Location in Medical Record [X] 85 year-old Female H&P p1 07/30 Dr Mendez [X] HTN H&P p1 07/30 Dr Mendez [X] CKD H&P p1 07/30 Dr Mendez [X] Mitral regurgitation HPN p3 08/01 Dr Rendon [X] Tricuspid regurgitation HPN p3 08/01 Dr Rendon [X] HLD HP 07/30 Present Treatments Results and Location in Medical Record [X] IV Laxin 20 mg MAR 07/30 [X] Norvasc 10 mg oral MAR 07/31 [X] Plavix 75 mg oral MAR 07/31 [X] Monitor and control BP HPN p3 08/01 Dr Rendon CDS/Transmission Rebuilder Signature: Liz Brenda Joaquíncarmelbud Phone #: [phone] Date/Time: 08/07/20529 This is a permanent part of the Medical Record [facility]
== END 2020-08-05 16:05 | disposition swing bed (61) | DRG 871 ==
LOC: ERS 16:06 → ERHOLD 21:33 → 2NO 07-31 03:35 → SURG A 07-31 12:53 → 2NO 07-31 12:54
PROVIDERS: ADMIT Family Medicine; ATTEND Family Medicine
DX: A41.51 Sepsis due to Escherichia coli [E. coli] (principal); G93.41 Metabolic encephalopathy; I50.33 Acute on chronic diastolic (congestive) heart failure; Z20.822 Contact with and (suspected) exposure to COVID-19; N39.0 Urinary tract infection, site not specified; E87.2 Acidosis; L03.115 Cellulitis of right lower limb; I13.2 Hypertensive heart and chronic kidney disease with heart failure and with stage 5 chronic kidney disease, or end stage renal disease; N18.5 Chronic kidney disease, stage 5; R65.20 Severe sepsis without septic shock; E78.5 Hyperlipidemia, unspecified; E03.9 Hypothyroidism, unspecified; D63.1 Anemia in chronic kidney disease; I08.3 Combined rheumatic disorders of mitral, aortic and tricuspid valves; I73.9 Peripheral vascular disease, unspecified; Z28.21 Immunization not carried out because of patient refusal; Z95.828 Presence of other vascular implants and grafts; Z88.0 Allergy status to penicillin; Z79.899 Other long term (current) drug therapy; Z79.890 Hormone replacement therapy; Z79.02 Long term (current) use of antithrombotics/antiplatelets; Z90.49 Acquired absence of other specified parts of digestive tract
CPT/HCPCS: 36415; 36600; 71045; 80048; 80053; 80202; 81001; 82140; 82553; 82805; 83605; 83880; 84145; 84439; 84443; 84481; 84484; 85025; 87040; 87077; 87086; 87186; 87635; 93005; 93306; 96374; J0696; J1644; J1940; J3370; J3490; J7050; U0003